=== PATIENT | male | born 1985 | race Asian ===

== ENCOUNTER 2023-05-04 11:35 | Emergency (ER) | payer BC ==
[2023-05-04 11:46] VITALS: BMI 30.2
[2023-05-04] MEDS ORDERED: METOCLOPRAMIDE HCL INJECTION 10 MG/2 ML VIAL IVPUSH ONE (12:36)
[2023-05-04] MEDS ORDERED: METOCLOPRAMIDE HCL INJECTION 10 MG/2 ML VIAL ONE (13:24)
[2023-05-04 14:16] LABS: BASO % 0.4 % (0-2.0); EOS % 1.8 % (0-4.5); HEMATOCRIT 44.4 % (35.4-49); HEMOGLOBIN 15.6 GM/dL (11.7-16.9); LYMPH % 17.6 % (8-40); MCH 28.4 pg (25.7-33.7); MCHC 35.1 g/dl (32.0-35.9); MEAN CELL VOLUME 80.8 fl (80-96); MEAN PLT VOLUME 7.5 fl (7.5-11.1); MONO % 8.7 % (3.8-10.2); NEUT % 71.5 % (42.8-82.8); PLATELET COUNT 334 10^3/uL (134-434); RDW 13.2 % (11.9-15.9); WHITE BLOOD COUNT 10.6 K/mm3 (4.0-10.0)
[2023-05-04 14:40] LABS: POTASSIUM 3.6 mmol/L (3.5-5.1)
[2023-05-04 14:42] LABS: ALBUMIN 4.3 g/dl (3.4-5.0); BLOOD UREA NITROGEN 17.5 mg/dL (7-18); CALCIUM 9.2 mg/dL (8.5-10.1)
[2023-05-04] MEDS ORDERED: ACETAMINOPHEN 500 MG TABLET (FP) PO ONE (14:44)
[2023-05-04 14:45] LABS: CREATININE 1.4 mg/dL (0.55-1.3)
[2023-05-04 14:47] LABS: BILIRUBIN,TOTAL 0.7 mg/dL (0.2-1); TOT PROT 7.2 g/dl (6.4-8.2)
[2023-05-04] MEDS ORDERED: ACETAMINOPHEN 325 MG TABLET (FP) ONE (15:04)
[2023-05-04 17:01] VITALS: TEMP 98.2
[2023-05-04] MEDS ORDERED: amLODIPine BESYLATE 5 MG TABLET (FP) PO ONE (17:35)
[2023-05-04] MEDS ORDERED: amLODIPine BESYLATE 5 MG TABLET (FP) ONE (17:39)
[2023-05-04] MEDS ORDERED: LABETALOL HCL 5 MG/1 ML (100MG/20 ML VIAL) IVPUSH ONE ×2 (18:05→19:36)
[2023-05-04] MEDS ORDERED: LABETALOL HCL 20 MG/4 ML VIAL ONE ×2 (18:47→20:07)
[2023-05-04 19:01] VITALS: RESP 17
[2023-05-04 21:05] VITALS: BP 149/96; PULSE 78
== END 2023-05-04 21:33 | disposition home or self-care (01) ==
LOC: JER 11:35
PROC: 3E033GC Introduction of Other Therapeutic Substance into Peripheral Vein, Percutaneous Approach (ICD-10-PCS; principal; 2023-05-04)
PROC: 3E033GC Introduction of Other Therapeutic Substance into Peripheral Vein, Percutaneous Approach (ICD-10-PCS; 2023-05-04)
PROC: 3E033GC Introduction of Other Therapeutic Substance into Peripheral Vein, Percutaneous Approach (ICD-10-PCS; 2023-05-04)
DX: I10 Essential (primary) hypertension (principal); R51.9 Headache, unspecified; R11.2 Nausea with vomiting, unspecified; R50.9 Fever, unspecified
CPT/HCPCS: 36415; 70450-TC; 71045-TC-FY; 80053; 84484; 85025; 93005; 93010; 99285-25